=== PATIENT | female | born 1985 | race Two or more races ===

== ENCOUNTER 2016-08-27 18:41 | Emergency (ER) | payer OTHER ==
[~2016-08-27] VITALS: Ht 160 cm; Wt 72.1 kg
[2016-08-27 19:39] LABS: Basophils # (auto) 0.1 uL; Basophils % (auto) 0.5 % (0.0-2.0); Eosinophils # (auto) 0.2 uL; Eosinophils % (auto) 1.6 % (0.0-7.0); Hematocrit 40.1 % (36.0-46.0); Hemoglobin 13.7 g/dL (12.2-16.2); Lymphocytes % (auto) 28.2 % (10.0-50.0); Mean Corpuscular Hemoglobin 30.9 pg (28.0-32.0); Mean Corpuscular Hgb Conc. 34.2 g/dL (32.0-36.0); Mean Corpuscular Volume 90.2 fL (80.0-100.0); Mean Platelet Volume 7.4 fL (7.4-10.4); Monocytes # (auto) 0.6 uL; Monocytes % (auto) 5.5 % (0.0-12.0); Neutrophils # (auto) 6.8 uL; Neutrophils % (auto) 64.2 % (37.0-80.0); Platelet Count (auto) 329 10^3/uL (140-450); Red Cell Distribution Width 13.3 % (11.6-16.0); White Blood Cell 10.6 10^3/uL (4.4-10.8)
[2016-08-27 19:44] LABS: Urine Bilirubin Negative (Negative); Urine Color Yellow (Yellow); Urine Glucose Normal (Normal); Urine Mucus FEW (None Seen); Urine Nitrite Negative (Negative); Urine RBC 1 /hpf (0 - 4); Urine pH 6.5 (5.0-8.0)
[2016-08-27 19:49] LABS: Urine Blood 1+ /uL (Negative); Urine Ketone 1+ (Negative)
[2016-08-27 20:02] LABS: Albumin 3.7 g/dL (3.4-5.0); BUN/Creatinine Ratio 12.9; Calcium 9.2 mg/dL (8.5-10.1); Potassium 3.7 mmol/L (3.5-5.1)
[2016-08-27 20:05] LABS: Bilirubin, Total 0.2 mg/dL (0.2-1.0); Total Protein 7.4 g/dL (6.4-8.2)
[2016-08-28] MEDS ORDERED: ONDANSETRON HCL 4 MG/2 ML VIAL IV ONE (03:30)
[2016-08-28] MEDS ORDERED: SODIUM CHLORIDE 0.9% 1,000 ML IV ONE (03:30)
[2016-08-28] MEDS ORDERED: NALBUPHINE HCL 10 MG/1ml INJECTION IV ONE (03:30)
[2016-08-28 06:03] VITALS: BP 87/63
== END 2016-08-28 08:24 | disposition home or self-care (01) ==
LOC: ER 18:43
DX: O20.0 Threatened abortion (principal); Z3A.08 8 weeks gestation of pregnancy; R10.2 Pelvic and perineal pain
CPT/HCPCS: 36415; 76801; 76817; 80053; 81001; 84702; 85025; 96361; 96374; 96375; 99285; J2300; J2405

== ENCOUNTER 2024-08-07 20:19 | Emergency (ER) | payer OTHER ==
[~2024-08-07] VITALS: Ht 154.9 cm; Wt 63.0 kg
--- NOTE | 2024-08-07 21:02 | ED.PDOC ---
History of Present Illness HPI Comments This is a 39-year-old, female that presents [facility] with 2x week history of 10/10 pressurize-like, generalized headache and pain to the posterior aspect of her left-knee. Patient is a [place] speaker. She endorses on being sent from urgent care for further workup to r/o brain s welling/bleed and knee X-ray. Patient states on having an ultrasound of her left-leg performed, yesterday, and results showing no signs of DVT. She denies any recent trauma, injuries, travel, or having any significant history, aside from DM II w/Metformin use and previous history of ectopic pregnancies. Patient denies any shortness of breath, chest pain, vision or speech changes, nausea, vomiting, fever, or chills at this time. 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 Family History Family History: Unknown Social History Smoker: Non-Smoker Alcohol: Denies ETOH Use Drugs: Denies Drug Use Lives In: Home All Other Systems: Reviewed and Negative (Comprehensive systems review obtained and negative except for what is stated in the HPI.) Physical Exam General Appearance: Mild Distress, Normal, Other (appears uncomfortable ) HEENT: Normal ENT Inspection, Pharynx Normal, TMs Normal Neck: Full Range of Motion, Non-Tender, Normal, Normal Inspection Respiratory: Chest Non-Tender, Lungs Clear, No Accessory Muscle Use, No Respiratory Distress, Normal Breath Sounds Cardiovascular: No Edema, No JVD, No Murmur, No Gallop, Normal Peripheral Pulses, Regular Rate/Rhythm Breast Exam: Deferred Gastrointestinal: No Organomegaly, Non Tender, No Pulsatile Mass, Normal Bowel Sounds, Soft Genitalia: Deferred Pelvic: Deferred Rectal: Deferred Extremities: No calf tenderness, Normal capillary refill, Normal inspection, Normal range of motion, No pedal edema, Tender (mild tenderness to posterior, left knee) Musculoskeletal : Apperance: Normal 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 Was a procedure done?: No Differential Dx Considerations may include: migraines, tension headache, intracranial bleed, electrolyte imbalance, dehydration, UTI, viral syndrome, URI, DVT, sprain, musculoskeletal pain, among others X-Ray, Labs, Meds, VS Vital Signs Date Time Temp Pulse Resp B/P (MAP) Pulse Ox O2 Delivery O2 Flow Rate FiO2 08/08/24 00:58 98.3 68 18 125/81 (96) 100 98.3 08/07/24 20:59 98.0 68 14 119/75 (90) 100 98.0 Time of 1ST Reevaluation: 21:10 Reevaluation 1ST: Unchanged Patient Education/Counseling: Diagnosis, Treatment Family Education/Counseling: No Family Present Departure 1 Departure Time of Disposition: 23:00 Impression: Primary Impression: Left knee pain Additional Impression: Headache Disposition: HOME / SELF CARE / HOMELESS Condition: Stable Discharged With: Self Critical Care Note Critical Care Time?: No Stability Stability form required: No Heart Score Heart Score: Heart Score Response (Comments) Value History N/A 0 EKG N/A 0 Age N/A 0 Risk Factors N/A 0 Troponin N/A 0 Total 0 I personally scribed for YVES GARZA MD ([email or web address]) on 08/07/24 at 21:02. Electronically submitted by Julius Aguirre ([email or web address]). YVES GARZA MD August 07, 2024 21:02
--- NOTE | 2024-08-07 21:15 | DVH ---
EXAM: XY L KNEE 2V XRAY CLINICAL INDICATION: pain no trauma TECHNIQUE: XY L KNEE 2V XRAY Comparison: None FINDINGS/IMPRESSION: There is no evidence of acute fracture or dislocation. The visualized joint space is well maintained. The alignment is anatomical. There is no radiopaque foreign body.
--- NOTE | 2024-08-07 21:16 | DVH ---
EXAM: XY L TIB FIB XRAY CLINICAL INDICATION: pain no trauma TECHNIQUE: XY L TIB FIB XRAY Comparison: None FINDINGS/IMPRESSION: There is no evidence of acute fracture or dislocation. The visualized joint space is well maintained. The alignment is anatomical. There is no radiopaque foreign body.
--- NOTE | 2024-08-07 21:22 | DVH ---
EXAM: CT HEAD WITHOUT CONTRAST INDICATION: severe headache EXAM DATE: 08/07/2024 08:46 PM COMPARISON: None TECHNIQUE: CT of the head without intravenous contrast. Radiation Dose Information: [place] [id number] m[place]. Dose-length product is [id number] mGy*cm FINDINGS: There is no evidence of acute intracranial hemorrhage, extra-axial collection, mass effect, midline s hift, herniation or hydrocephalus. The ventricles, sulci and cisterns are age appropriate. The forte-w chevy differentiation is intact. The visualized paranasal sinuses and mastoid air cells are clear. The surrounding soft tissues and osseous structures are unremarkable. IMPRESSION: 1. No evidence of acute intracranial hemorrhage, mass effect or hydrocephalus. END IMPRESSION:
[2024-08-08 00:58] VITALS: BP 125/81; PULSE 68; RESP 18; TEMP 98.3; O2SAT 100
== END 2024-08-08 01:04 | disposition home or self-care (01) ==
LOC: ER 20:19
DX: M25.562 Pain in left knee (principal); R51.9 Headache, unspecified; E11.9 Type 2 diabetes mellitus without complications
CPT/HCPCS: 70450; 73560; 73590